=== PATIENT | male | born 2000 | race Two or more races ===

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

== ENCOUNTER → 2021-02-27 | Emergency (ER) | payer OTHER ==
[~2021-02-27] VITALS: Ht 177.8 cm; Wt 64.4 kg
== END | disposition home or self-care (01) ==
LOC: EMR PED 17:22
DX: R53.81 Other malaise (principal); B96.0 Mycoplasma pneumoniae [M. pneumoniae] as the cause of diseases classified elsewhere; J06.9 Acute upper respiratory infection, unspecified; J02.8 Acute pharyngitis due to other specified organisms; Z20.822 Contact with and (suspected) exposure to COVID-19

== ENCOUNTER 2025-04-09 17:45 | Emergency (ER) | payer OTHER ==
[~2025-04-09] VITALS: Ht 180.3 cm; Wt 76.2 kg
[2025-04-09 17:55] VITALS: BP 121/81; O2SAT 98
[2025-04-09] MEDS ORDERED: CEFTRIAXONE SODIUM 1,000 MG VIAL IM ONE (18:30)
[2025-04-09] MEDS ORDERED: KETOROLAC TROMETHAMINE 60 MG VIAL IM ONE ×2 (18:30→19:29)
[2025-04-09] MEDS ORDERED: AMOX-CLAV 875-1 EAC1 PO (19:21)
[2025-04-09] MEDS ORDERED: CEFTRIAXONE SODIUM 1,000 MG VIAL ONE (19:29)
[2025-04-09] MEDS ORDERED: PEPCID AC20 MG PO (19:34)
[2025-04-09] MEDS ORDERED: IBU400 MG PO (19:34)
== END 2025-04-09 19:43 ==
LOC: ER 17:45
DX: J03.80 Acute tonsillitis due to other specified organisms (principal)